=== PATIENT | female | born 1950 | race Caucasian/White ===

== ENCOUNTER → 2019-05-18 | Day surgery (SDC) | payer MEDICARE ==
--- NOTE | 2019-05-11 18:27 | HP ---
CC: Dr. Yarbrough * ADMITTING HISTORY AND PHYSICAL: DATE OF ADMISSION: 05/18/19 ADMITTING DIAGNOSIS: Bladder cancer. PLANNED PROCEDURE: Cystoscopy, transurethral resection of bladder tumor, left stent insertion. SURGEON: Dr. Pate. HISTORY OF PRESENT ILLNESS: Mariana Vee is a 68-year-old nonsmoker who has originally been evaluated in 2016 for hematuria. 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 She did very well for over 3 years up until recently when a cystoscopy revealed a recurrent bladder tumor in the left lateral wall measuring about 3 to 4 cm or possibly slightly larger. She is now being brought in for transurethral resection of the bladder tumor and temporary left stent insertion. PAST MEDICAL HISTORY: Significant for superficial bladder cancer. PAST SURGICAL HISTORY: Significant for transurethral resection of bladder tumor in 2016 and surgery for endometriosis and ovarian cyst. MEDICATIONS ON ADMISSION: None. ALLERGIES: No known drug allergies. FAMILY HISTORY: Negative for bladder cancer. SOCIAL HISTORY: Smoking history: She is a nonsmoker. REVIEW OF SYSTEMS: She is otherwise in good health. There is no history of diabetes mellitus or any other major systemic illness. She denies any chest pain or shortness of breath. PHYSICAL EXAMINATION GENERAL: Reveals a pleasant, middle-aged lady. VITAL SIGNS: Blood pressure is 108/64, pulse 69 per minute and regular, temperature 97.9, oxygen saturation 95% on room air. LUNGS: Clear bilaterally. CARDIOVASCULAR: Regular rate and rhythm. S1, S2. ABDOMEN: Soft without masses. IMPRESSION: A 68-year-old lady who is a nonsmoker with what appears to be a recurrent bladder tumor. PLAN: Planned procedure is transurethral resection of bladder tumor and left stent insertion. [id number]/[facility] #: [id number] [facility]
[~2019-05-18] MED LIST: Acetaminophen TAB* 325 MG ONE; Acetaminophen TAB* 325 MG PO PRN; Buffered Lidocaine 1% SYRIN* 1 ML/SYRINGE INTRADERM ONE; Chloroprocaine 2%* 20 ML VIAL ONE; Dexamethasone IV* 4 MG/ML 1 ML (4 MG) IV SLOW PU ONE; Dexamethasone IV* 4 MG/ML 1 ML (4 MG) ONE; Famotidine TAB* 20 MG ONE; Famotidine TAB* 20 MG PO ONE; Furosemide IV* 10 MG/ML 2 ML VIAL (20 MG) ONE; Iohexol 180 (CONTRAST) 10 ML SDV IV ONE; Lactated Ringers 1000 ML Bag* 1,000 ML IV SCH; Midazolam* 1 MG/ML 5 ML VIAL (5 MG) ONE; Naloxone* 0.4 MG/ML 1 ML VIAL IV PRN; Ondansetron INJ* 2 MG/ML VIAL IV PRN; Propofol* 10 MG/ML 20 ML BTL ONE; cefTRIAXone(*) 2 GM ADDV.VIAL IVPB ONE; fentaNYL* 50 MCG/ML 2 ML VIAL (100 MCG VIAL) IV PRN; mitoMYcin PWD* 40 MG in Sterile Water for Inj* 40 ML IRRIGATION ONE; oxyCODONE/Acetamin 5/325 MG* TAB PO PRN
--- NOTE | 2019-05-18 09:29 | OP ---
CC: Dr. Ольга Yarbrough * DATE OF OPERATION: 05/18/[address] - [facility] DATE OF : 52 SURGEON: Eleno Pate MD. ANESTHESIOLOGIST: Dr. Palmer. ANESTHESIA: Spinal. PRE-OP DIAGNOSIS: Bladder tumor. POST-OP DIAGNOSIS: Bladder tumor. OPERATIVE PROCEDURES: 1. Cystoscopy, transurethral resection and fulguration of bladder tumor (3 to 4 cm). 2. Left retrograde and left stent insertion. BLOOD LOSS: Less than 25 cc. SPECIMEN: Bladder tumor, left lateral wall. INDICATIONS: Mariana Vee is a 68-year-old lady who had been evaluated about 3 years ago for a high-grade noninvasive bladder cancer and recently was seen in followup and was noted to have what appears to be a recurrent bladder tumor in the left lateral wall of the bladder. OPERATIVE FINDINGS: Same as above. STENT USED: A 7-Micronesian stent, left ureter. DESCRIPTION OF PROCEDURE: After induction of spinal anesthesia, the patient was placed in the dorsal lithotomy position. Sequential compression devices were in place and functioning. Initial cystoscopy revealed normally located right and left ureteral orifices. The bladder was examined. 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 This was close to the intramural portion of the left ureter, so I elected to proceed with left stent insertion. Left retrograde pyelogram revealed no evidence of filling defects and a 7-Micronesian stent was introduced under fluoroscopic monitoring with good proximal and distal positioning obtained. Next, using a biopsy forceps, auto claim representative biopsies were obtained and sent for histopathology. The resectoscope was introduced and all of the visibly abnormal-appearing area was resected and fulgurated. At the end of the procedure, there was no remaining visible tumor and hemostasis appeared satisfactory. There was no evidence of bladder perforation. A 20-Micronesian Barlow catheter was introduced without difficulty and connected to a drainage bag. The patient tolerated the procedure satisfactorily and was transferred back to the recovery area in stable condition. [id number]/[facility] #: [id number] [facility]
[2019-05-18 10:34] VITALS: BP 135/74
== END | disposition home or self-care (01) ==
LOC: OR 05:39
PROVIDERS: ATTEND Urology
DX: C67.2 Malignant neoplasm of lateral wall of bladder (principal)
CPT/HCPCS: 74420; 88305; A9270-GY; C1876; J0696; J1100; J1940; J2250; J2400; J2704; J9280